=== PATIENT | female | born 1990 | race African-American/Black ===

== ENCOUNTER 2016-06-05 11:38 | Emergency (ER) | payer OTHER ==
--- NOTE | ~2016-06-05 | CR156 ---
[facility] A Service of [facility] & [facility] RADIOLOGY TEXT RESULTS PATIENT: FLORENTIN MCKEON LOCATION: [facility] : 86 UNIT #: [id number] AGE: [address]: Mely Solis SEX: F ORDER DR: [id number] [facility] [address]. [place], [place] [address] [id number] E MR#: [id number] Acc #: [id number] NAME: FLORENTIN MCKEON : 1990 SEX: F STUDY DATE/TIME: 06/05/2016 11:44 UNIT: [facility] ROOM: STUDY DESCRIPTION: CR Humerus Min 2 View Lt Attending Physician: Mely Solis P.A.-C. Ordering Physician: Mely Solis P.A.-C. Primary Care Physician: No Primary Care Physician MEDICAL IMAGING REPORT This report is preliminary unless electronic signature is present EXAM Left humerus 2 views 06/05/2016 1144 hours HISTORY Patient complains of pain in a left humerus, bilateral hands this morning. History of seizures. No acute injury today. COMPARISON None. FINDINGS AP and lateral views of the left humerus demonstrate no fracture. Limited views of the shoulder and elbow are negative. IMPRESSION Negative left humerus. Dictated by... Yvette Salter M.D. THIS IS AN ELECTRONICALLY VERIFIED REPORT Yvette Salter M.D. at 06/05/2016 2:07 PM LISSETT/alexander TD: 06/05/2016 13:48 JOB #: [id number] MEDICAL IMAGING REPORT Page 1 of 1 COPY
--- NOTE | ~2016-06-05 | CR139 ---
[facility] A Service of [facility] & [facility] RADIOLOGY TEXT RESULTS PATIENT: FLORENTIN MCKEON LOCATION: [facility] : 86 UNIT #: [id number] AGE: [address]: Mely Solis SEX: F ORDER DR: [id number] [facility] [address] [place], [place] [address] [id number] E MR#: [id number] Acc #: [id number] NAME: FLORENTIN MCKEON : 1990 SEX: F STUDY DATE/TIME: 06/05/2016 11:51 UNIT: [facility] ROOM: STUDY DESCRIPTION: CR Hand 2 Views Rt Attending Physician: Mely Solis P.A.-C. Ordering Physician: Mely Solis P.A.-C. Primary Care Physician: No Primary Care Physician MEDICAL IMAGING REPORT This report is preliminary unless electronic signature is present EXAM Right hand, 3 views, 06/05/2016, 1151 hours. CLINICAL HISTORY Left humerus pain, bilateral hand pain today. No known injury. History of seizures. COMPARISON None FINDINGS AP, lateral, and oblique views demonstrate normal bone density. The distal radius and ulna, carpal bones, metacarpals, and fingers are normal. IMPRESSION Normal right hand. Dictated by... Yvette Salter M.D. THIS IS AN ELECTRONICALLY VERIFIED REPORT Yvette Salter M.D. at 06/05/2016 2:07 PM LISSETT/yaniv TD: 06/05/2016 13:47 JOB #: [id number] MEDICAL IMAGING REPORT Page 1 of 1 COPY
--- NOTE | ~2016-06-05 | CT101 ---
[facility] A Service [facility] RADIOLOGY TEXT RESULTS PATIENT: FLORENTIN MCKEON LOCATION: [facility] : 86 UNIT #: [id number] AGE: [address]: Mely Solis SEX: F ORDER DR: [id number] [place] [id number] [facility]. [place], [place] [address] [id number] E MR#: [id number] Acc #: [id number] NAME: FLORENTIN MCKEON : 1990 SEX: F STUDY DATE/TIME: 06/05/2016 12:11 UNIT: [facility] ROOM: STUDY DESCRIPTION: CT Maxillofacial Area Wo Cont Attending Physician: Mely Solis P.A.-C. Ordering Physician: Mely Solis P.A.-C. Primary Care Physician: No Primary Care Physician MEDICAL IMAGING REPORT This report is preliminary unless electronic signature is present EXAM Maxillofacial CT without contrast. DATE OF STUDY 06/05/2016 CLINICAL HISTORY Left facial pain and bruising, mechanism of injury unknown. Patient states injury occurred this morning. PROCEDURE Axial maxillofacial CT with multiplanar reformats. This CT exam was performed with one or more of the following radiation dose reduction techniques: automatic exposure control, adjustment of mA and/or kV according to patient size, and iterative reconstruction. FINDINGS There is no fracture. The orbital soft tissues are normal. There is no evidence of ocular injury, orbital foreign body, or hematoma or other acute abnormality. IMPRESSION Normal. Dictated by... Martin Cabezas M.D. THIS IS AN ELECTRONICALLY VERIFIED REPORT Martin Cabezas M.D. at 06/05/2016 3:51 PM [facility] A Service [facility] RADIOLOGY TEXT RESULTS PATIENT: FLORENTIN MCKEON LOCATION: [facility] : 86 UNIT #: [id number] AGE: [address]: Mely Solis SEX: F ORDER DR: Aaron TD: 06/05/2016 14:08 JOB #: [id number] MEDICAL IMAGING REPORT Page 1 of 1 COPY
--- NOTE | ~2016-06-05 | CR141 ---
[facility] A Service of [facility] & [facility] RADIOLOGY TEXT RESULTS PATIENT: FLORENTIN MCKEON LOCATION: [facility] : 86 UNIT #: [id number] AGE: [address]: Mely Solis SEX: F ORDER DR: [id number] [facility] [address]. [place], [place] [address] [id number] E MR#: [id number] Acc #: [id number] NAME: FLORENTIN MCKEON : 1990 SEX: F STUDY DATE/TIME: 06/05/2016 UNIT: [facility] ROOM: STUDY DESCRIPTION: CR Hand Min 3 Views Lt Attending Physician: Mely Solis P.A.-C. Ordering Physician: Mely Solis P.A.-C. Primary Care Physician: No Primary Care Physician MEDICAL IMAGING REPORT This report is preliminary unless electronic signature is present EXAM Left hand 3 views 06/05/2016 1153 hours. HISTORY 25-year-old with history of seizure disorder, complaining of left humerus and bilateral hand pain today. No reported injury. COMPARISON None FINDINGS AP, lateral, and oblique views demonstrate normal bone density. The distal radius and ulna, carpal bones, metacarpals, and fingers are normal. IMPRESSION Normal left hand. Dictated by... Yvette Salter M.D. THIS IS AN ELECTRONICALLY VERIFIED REPORT Yvette Salter M.D. at 06/05/2016 2:07 PM Michelle TD: 06/05/2016 13:50 JOB #: [id number] MEDICAL IMAGING REPORT Page 1 of 1 COPY
[~2016-06-05 11:38] MED LIST: ALBUTEROL IH; KEPPRA500 MG PO; PAIN RELIEF650 MG PO
[2016-06-05 12:08] LABS: BASOPHIL% 0.4 % (0-2.5); EOSINOPHIL% 0.2 % (0.0-7.0); HEMATOCRIT 37.6 % (35.0-45.0); HEMOGLOBIN 11.9 gm/dL (12.0-16.0); LYMPHOCYTE# 1.7 X10e3 (1.0-3.5); LYMPHOCYTE% 17.1 % (17.0-45.0); MEAN CELL VOLUME 79.9 FL (83-96); MEAN CORPUSCULAR HEMOGLOBIN 25.3 PG (28-34); MEAN CORPUSCULAR HGB CONC 31.7 g/dL (30-36); MEAN PLATELET VOLUME 10.3 FL (6.5-11.5); MONOCYTE# 0.5 X10e3 (0-1.0); MONOCYTE% 5.3 % (3.0-12.0); NEUTROPHIL# 7.6 X10e3 (1.5-7.1); PLATELET COUNT 217 X10e3 (140-420); RED BLOOD COUNT 4.71 X10e (3.90-5.30); RED CELL DISTRIBUTION WIDTH 14.1 % (11.0-15.5); WHITE BLOOD COUNT 9.8 X10e3 (4.0-10.5)
[2016-06-05 12:10] LABS: DIFF IND NO
[2016-06-05 12:42] LABS: BUN/CREATININE RATIO 14.28; CALCIUM SERUM 8.8 mg/dL (8.4-10.2); CREATININE SERUM 0.7 mg/dL (0.6-1.4); GLOM FILT RATE Estimated 137.6 mL/min (>60); POTASSIUM 3.4 mmol/L (3.5-5.1)
== END 2016-06-05 13:09 | disposition home or self-care (01) ==
LOC: CFTX 11:38
PROVIDERS: Physician Assistant
DX: S60.032A Contusion of left middle finger without damage to nail, initial encounter (principal); S00.83XA Contusion of other part of head, initial encounter; S60.221A Contusion of right hand, initial encounter; F17.210 Nicotine dependence, cigarettes, uncomplicated; X58.XXXA Exposure to other specified factors, initial encounter; Y92.9 Unspecified place or not applicable
CPT/HCPCS: 29130; 36415; 70486; 73060; 73120; 73130; 80048; 85025; 99284